=== PATIENT | male | born 1950 | race Caucasian/White ===

== ENCOUNTER → 2018-10-12 | Outpatient (CLI) | payer MEDICARE, OTHER ==
[~2018-10-12] MED LIST: ASPI-586 PO; LOSA50TA7 PO; MULT-593 PO; OMEG-109 PO; OMEP40CA36 PO; [UNRECOGNIZED DRUG - OTHER]
== END ==
LOC: CARD 10:37
PROVIDERS: ATTEND Internal Medicine Cardiovascular Disease
DX: R06.09 Other forms of dyspnea (principal); I10 Essential (primary) hypertension; E78.2 Mixed hyperlipidemia; R53.83 Other fatigue; I08.2 Rheumatic disorders of both aortic and tricuspid valves; Z82.49 Family history of ischemic heart disease and other diseases of the circulatory system
CPT/HCPCS: 93306

== ENCOUNTER → 2018-10-17 | Outpatient (CLI) | payer MEDICARE, OTHER ==
[~2018-10-17] VITALS: Ht 170.2 cm; Wt 84.8 kg
[~2018-10-17] MED LIST changes: +CATHETER FLUSH 10 ML SYR IV PRN
[2018-10-17 09:45] VITALS: BP 160/97
[2018-10-17 09:47] VITALS: BP 178/98
[2018-10-17 09:52] VITALS: BP 215/87
[2018-10-17 09:53] VITALS: BP 172/93
[2018-10-17 09:54] VITALS: BP 136/82
--- NOTE | 2018-10-17 13:21 | STRESS TEST ---
DATE OF SERVICE: 10/17/2018 EXERCISE MYOVIEW STRESS TEST REPORT REFERRING PHYSICIAN: Dr. Chakraborty. Baseline heart rate is 59. Baseline blood pressure 163/92. Baseline EKG sinus rhythm with no ischemic changes. In summary, the patient was injected with 10.83 mCi of technetium-99 Myoview and the resting images were obtained. Then, the patient started exercising with a baseline heart rate, blood pressure and EKG mentioned above. With peak exercise level, the patient had mild nondiagnostic changes with [address] depression in II, III, aVF, V4 and V5. Blood pressure at peak was 215/87. During recovery, heart rate and blood pressure returned to baseline. The resting and stress images were reviewed and compared in the short axis, horizontal long axis, and vertical long axis views. Review of the images showed diaphragmatic attenuation with decreased uptake involving the inferior wall and inferoseptum, which is fixed. No significant reversibility was noted. SSS is 4, SDS 1, TID value 0.98. On the gated images, the left ventricle appeared to be in normal size with normal contractility. Calculated ejection fraction 65%. CONCLUSION: 1. The patient was able to exercise for 6 minutes of standard Solo protocol 7.3 METS achieving 100% of maximum expected heart rate. 2. Severe hypertensive response to exercise returned to baseline during recovery. 3. Diaphragmatic attenuation with fixed defect involving the mid to apical inferior wall with no significant reversibility noted. 4. Normal left ventricular size with normal contractility. Calculated ejection fraction 65%. Job ID: [id number] DocumentID: [id number] Dictated Date: 10/17/2018 12:58:46 Director Of Plant Operations Date: 10/17/2018 13:21:09 Dictated By: TRISTAN GOMEZ MD
== END ==
LOC: CARD 08:09
PROVIDERS: ATTEND Internal Medicine Cardiovascular Disease
DX: R06.09 Other forms of dyspnea (principal); R53.83 Other fatigue; I10 Essential (primary) hypertension; E78.2 Mixed hyperlipidemia; Z82.49 Family history of ischemic heart disease and other diseases of the circulatory system
CPT/HCPCS: 78452; 93017

== ENCOUNTER → 2018-11-08 | Outpatient (CLI) | payer MEDICARE, OTHER ==
[~2018-11-08] MED LIST changes: -CATHETER FLUSH 10 ML SYR IV PRN
--- NOTE | 2018-11-08 09:58 | Diagnostic Imaging Report ---
PA and lateral chest at 9:53. Indication: Shortness of breath. The heart size is within normal limits and stable when compared to 08/02/2013. The lungs are clear. There is no sign of failure, pneumonia or pleural effusion. The mediastinum is not widened. The osseous structures are intact. Impression: There is no evidence for an acute cardiopulmonary abnormality. When compared to the prior study there has been no significant change. Dictated by: Dictated on workstation # [id number]
== END ==
LOC: LAB 09:20
PROVIDERS: ATTEND Nurse Practitioner Family
DX: R06.02 Shortness of breath (principal)
CPT/HCPCS: 71046

== ENCOUNTER → 2018-11-16 | Outpatient (CLI) | payer MEDICARE, OTHER ==
[~2018-11-16] MED LIST changes: +RT-ALBUTEROL SULF 2.5 MG/3 ML PRE-MIX VIAL INH ONE
== END ==
LOC: RT 14:06
PROVIDERS: ATTEND Nurse Practitioner Family
DX: R06.02 Shortness of breath (principal)
CPT/HCPCS: 94060; 94726; 94729

== ENCOUNTER 2019-02-13 19:54 | Outpatient (CLI) | payer MEDICARE, OTHER ==
[~2019-02-13 19:54] MED LIST changes: +LOSA50TA63 PO; -LOSA50TA7 PO; -RT-ALBUTEROL SULF 2.5 MG/3 ML PRE-MIX VIAL INH ONE
== END 2019-02-14 06:10 | disposition home or self-care (01) ==
LOC: SLEEP 19:54
PROVIDERS: ATTEND Family Medicine
DX: G47.33 Obstructive sleep apnea (adult) (pediatric) (principal)
CPT/HCPCS: 95810

== ENCOUNTER → 2021-02-19 | Outpatient (CLI) | payer MEDICARE, OTHER ==
[~2021-02-19] MED LIST changes: +OMEP40CA27 PO; -OMEP40CA36 PO
== END ==
LOC: CARD 13:16
PROVIDERS: ATTEND Internal Medicine Cardiovascular Disease
DX: I11.9 Hypertensive heart disease without heart failure (principal); I08.0 Rheumatic disorders of both mitral and aortic valves
CPT/HCPCS: 93306

== ENCOUNTER → 2021-02-21 | Outpatient (CLI) | payer MEDICARE, OTHER ==
[~2021-02-21] MED LIST changes: +CATHETER FLUSH 10 ML SYR IV PRN; +HOLD METFORMIN - RECEIVED CONTRAST 20 ML VIAL IV SCH; +IOHEXOL 350 MG/ML 100 ML (OMNIPAQUE 350) VIAL IV ONE; +NS 100 ML (IVPB) BAG IV ONE
[2021-02-21 08:21] LABS: BUN/CREATININE RATIO 22; CREATININE SERUM 0.96 MG/DL (0.60-1.30); GFR ESTIMATED > 60
--- NOTE | 2021-02-21 09:34 | Diagnostic Imaging Report ---
CT ANGIO NECK W Technique: CTA neck was performed with IV contrast. 3-D MIP reformats are created and submitted. Automatic exposure controls were used for dose optimization. Indication: Occlusion of the left carotid artery. Followup abnormal carotid ultrasound performed in office. Comparison: None available. Findings: The great vessels just above the aortic arch are normal. The bilateral common carotid arteries are patent with the left being asymmetrically small. There is no stenosis of the right internal carotid arteries per NASCET criteria. The cervical division of the right ICA is normal. The left ICA is completely occluded at its origin. There is no flow within the cervical segment of the left internal carotid artery. The temporal/horizontal division of the left ICA is completely occluded as well. There is reconstitution of flow in the supraclinoid portion of the left ICA via collateral flow from a very large posterior commuting artery on the left. This indicates the occlusion of the left common carotid artery is chronic in nature. The vertebral arteries are codominant and have no stenosis or occlusion within the neck. Basilar artery is widely patent. There is a large solid right thyroid nodule measuring 3.9 x 3.1 cm. No cervical lymphadenopathy. Impression: 1. 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 There is no flow within the cervical or temporal division of the left ICA. There is reconstitution of flow in the supraclinoid division left ICA via collateral supply from a large left posterior commuting artery. The large size of this posterior commuting artery indicates the occlusion of the left ICA is chronic in nature. 2. Large solid right thyroid nodule measuring up to 2.9 cm. If not previously performed, ultrasound-guided FNA is recommended for tissue diagnosis. Dictated by: Dictated on workstation # [id number]
== END ==
LOC: RAD 09:15
PROVIDERS: ATTEND Physician Assistant
DX: I65.23 Occlusion and stenosis of bilateral carotid arteries (principal); E04.1 Nontoxic single thyroid nodule
CPT/HCPCS: 36415; 70498; 82565; 84520

== ENCOUNTER → 2021-04-09 | Outpatient (CLI) | payer MEDICARE, OTHER ==
[~2021-04-09] MED LIST changes: -HOLD METFORMIN - RECEIVED CONTRAST 20 ML VIAL IV SCH; -IOHEXOL 350 MG/ML 100 ML (OMNIPAQUE 350) VIAL IV ONE; -NS 100 ML (IVPB) BAG IV ONE
[2021-04-09 09:08] VITALS: BP 145/92
--- NOTE | 2021-04-09 11:43 | Cardiology Stress Test Report ---
Stress Test Report Date of Procedure/Referring: Date of Procedure: Apr 09, 2021 PCP Tristan Gautam MD Admitting Physician Lauren Chakraborty MD Indications: Dyspnea Baseline Heart Rate: 52 Baseline Blood Pressure: Blood Pressure Systolic: 145 Blood Pressure Diastolic: 92 Vital Signs Date Time Temp Pulse Resp B/P (MAP) Pulse Ox O2 Delivery O2 Flow Rate FiO2 04/09/21 09:08 52 145/92 (109) Baseline Vital Signs Vital Signs Date Time Temp Pulse Resp B/P (MAP) Pulse Ox O2 Delivery O2 Flow Rate FiO2 04/09/21 09:08 52 145/92 (109) Baseline EKG: Baseline EKG: NSR Summary: After explaining the procedure and details to the patient, he signed the consent and was brought to the stress nuclear laboratory. Patient exercised on standard Solo protocol, EKG, heart rate and blood pressure were monitored continuously, resting and stress doses of radio tracer were injected, imaging was acquired and reviewed in the short axis, horizontal long axis and vertical long axis views Patient was able to exercise for a total of 5.1 minutes on Solo protocol, METs 7.1 Maximum heart rate 138 Maximum blood pressure 184/92 Stress EKG, Minimal nondiagnostic changes Recovery EKG, Return to baseline TID: 0.94 SSS: 2 SDS: 2 EF: 58 Conclusion: 1. Patient tolerated exercise test well 2. Good exercise tolerance for 5 minutes 10 seconds on Solo protocol achieving 91% of maximal expected heart rate, total of 7.1 METS 3. Hypertensive response to exercise with peak blood pressure 184/92 4. Minimal nondiagnostic EKG changes with exercise return to baseline during covering 5. No significant ischemia or infarction on SPECT images 6. Normal left ventricular size, EF 58% TRISTAN GAUTAM MD Apr 09, 2021 11:43
== END ==
LOC: CARD 07:30
PROVIDERS: ATTEND Internal Medicine Cardiovascular Disease
DX: R06.09 Other forms of dyspnea (principal)
CPT/HCPCS: 78452; 93017; A9502

== ENCOUNTER → 2022-02-10 | Outpatient (CLI) | payer MEDICARE, OTHER ==
[~2022-02-10] MED LIST changes: -CATHETER FLUSH 10 ML SYR IV PRN; -OMEP40CA27 PO; +OMEP40CA6 PO
--- NOTE | 2022-02-10 13:14 | Diagnostic Imaging Report ---
PROCEDURE: US Thyroid. TECHNIQUE: Multiple Real-time grayscale images were obtained of the thyroid in various projections. INDICATION: Thyroid nodule noted on recent CT. COMPARISON: Correlation is made with the CT study from 02/21/2021. FINDINGS: The right lobe of the thyroid measures 5.6 x 3.2 x 3.1 cm and the left lobe measures 4.3 x 1.8 x 1.3 cm. The isthmus is 3 mm in thickness. There is a large nodule in the right lobe of the thyroid which appears solid. This measures 3.6 x 3.2 x 3.1 cm. There is some heterogeneity present. No microcalcifications are seen. The left lobe of the thyroid shows homogeneous echotexture. No mass is seen. IMPRESSION: Dominant solid right lobe thyroid mass. Fine-needle aspiration would be recommended. Dictated by: Dictated on workstation # [id number]
== END ==
LOC: RAD 10:30
PROVIDERS: ATTEND Family Medicine
DX: E04.1 Nontoxic single thyroid nodule (principal)
CPT/HCPCS: 76536

== ENCOUNTER → 2022-02-19 | Outpatient (CLI) | payer MEDICARE, OTHER ==
[~2022-02-19] VITALS: Ht 68 cm; Wt 99.0 kg
[~2022-02-19] MED LIST changes: +LIDOCAINE 1% INJ 20 ML VIAL INJ ONE; +LIDOCAINE 1% INJ 20 ML VIAL ONE
[2022-02-19 11:00] VITALS: BP 115/84
--- NOTE | 2022-02-19 12:52 | Diagnostic Imaging Report ---
INDICATION: Right thyroid mass. Patient presents for ultrasound-guided fine-needle aspiration and biopsy. Patient was brought to the procedure room and placed on the table in the supine position. Ultrasound imaging of the right neck was performed to evaluate appropriate entry site. Right neck was prepped and draped in the usual sterile fashion. A small amount of 1% lidocaine was utilized for local anesthesia. A total of four passes were made into the dominant solid mass in the right lobe of the thyroid utilizing 25-gauge needles and fine-needle aspiration technique. A single pass was made with a Rotex needle, and Rotex biopsy was performed. Hemostasis was obtained. Patient tolerated the procedure well and left the department in stable condition. IMPRESSION: Successful ultrasound-guided right lobe thyroid mass fine-needle aspiration and Rotex biopsy. Pathology results are currently pending. Dictated by: Dictated on workstation # [id number]
== END ==
LOC: RAD 11:00
PROVIDERS: ATTEND Nurse Practitioner Family
DX: E07.9 Disorder of thyroid, unspecified (principal)
CPT/HCPCS: 10005

== ENCOUNTER → 2022-09-28 | Outpatient (CLI) | payer MEDICARE, OTHER ==
[~2022-09-28] MED LIST changes: -LIDOCAINE 1% INJ 20 ML VIAL INJ ONE; -LIDOCAINE 1% INJ 20 ML VIAL ONE
== END ==
LOC: CARD 11:32
PROVIDERS: ATTEND Internal Medicine Cardiovascular Disease
DX: I35.1 Nonrheumatic aortic (valve) insufficiency (principal); I10 Essential (primary) hypertension
CPT/HCPCS: 93306

== ENCOUNTER → 2023-09-01 | Outpatient (CLI) | payer MEDICARE, OTHER ==
[~2023-09-01] VITALS: Ht 170.2 cm; Wt 87.9 kg
[~2023-09-01] MED LIST changes: +MTP25TSR PO
== END | disposition home or self-care (01) ==
LOC: PREOP 05:45
PROVIDERS: ATTEND Surgery
DX: Z01.818 Encounter for other preprocedural examination (principal)